=== PATIENT | female | born 1970 | race Caucasian/White ===

== ENCOUNTER 2024-02-17 11:41 | Emergency (ER) | payer OTHER ==
[~2024-02-17] VITALS: Ht 154.9 cm; Wt 89.4 kg
[2024-02-17 12:09] VITALS: BP 115/73; PULSE 66; RESP 16; TEMP 98.5; O2SAT 97
[2024-02-17] MEDS ORDERED: KETOROLAC 30 MG/ML VIAL ONE (14:26)
[2024-02-17] MEDS ORDERED: CYCLOBENZAPRINE 10 MG TAB ONE (14:26)
[2024-02-17] MEDS: CYCLOBENZAPRINE 10 MG TAB PO ONE (14:31)
[2024-02-17] MEDS: KETOROLAC 30 MG/ML VIAL IM ONE (14:31)
[2024-02-17] MEDS ORDERED: IBUP-2213 PO (15:04)
[2024-02-17] MEDS ORDERED: CYCL-711 PO (15:04)
[2024-02-17 15:21] VITALS: BP 106/69; PULSE 51; RESP 18; TEMP 98.2; O2SAT 100
== END 2024-02-17 15:21 | disposition home or self-care (01) ==
LOC: MED 11:41
DX: S16.1XXA Strain of muscle, fascia and tendon at neck level, initial encounter (principal); G44.209 Tension-type headache, unspecified, not intractable; Z79.1 Long term (current) use of non-steroidal anti-inflammatories (NSAID); Z79.899 Other long term (current) drug therapy; E78.00 Pure hypercholesterolemia, unspecified; X58.XXXA Exposure to other specified factors, initial encounter; Y93.89 Activity, other specified; Y92.89 Other specified places as the place of occurrence of the external cause; Y99.8 Other external cause status
CPT/HCPCS: 96372; 99283; J1885

== ENCOUNTER 2024-04-02 07:35 | Day surgery (SDC) | payer OTHER ==
[~2024-04-02] VITALS: Ht 160 cm; Wt 95.3 kg
[~2024-04-02 07:35] MED LIST: CYCL-711 PO; IBUP-2213 PO
[2024-04-02] MEDS ORDERED: MIDAZOLAM 5 MG/5 ML VIAL ONE (10:05)
[2024-04-02] MEDS ORDERED: LIDOCAINE 2% 100 MG/5 ML UJET TP ONE (10:05)
[2024-04-02] MEDS ORDERED: fentaNYL citrate 0.05 MG/ML VIAL ONE (10:05)
[2024-04-02] MEDS: MIDAZOLAM 2 MG/2 ML VIAL IVP ONE (10:58)
[2024-04-02] MEDS: fentaNYL citrate 0.05 MG/ML VIAL IVP ONE (11:00)
== END 2024-04-02 12:47 | disposition home or self-care (01) ==
LOC: MMU 07:35 → MDS 07:35
PROVIDERS: ATTEND Internal Medicine Gastroenterology
DX: Z12.11 Encounter for screening for malignant neoplasm of colon (principal); K21.9 Gastro-esophageal reflux disease without esophagitis; K57.30 Diverticulosis of large intestine without perforation or abscess without bleeding; E03.9 Hypothyroidism, unspecified; E78.5 Hyperlipidemia, unspecified; E11.9 Type 2 diabetes mellitus without complications; Z90.49 Acquired absence of other specified parts of digestive tract; Z79.890 Hormone replacement therapy; Z79.899 Other long term (current) drug therapy; Z98.890 Other specified postprocedural states
CPT/HCPCS: 43235; 45378; 82948; J2250; J3010; J7030